=== PATIENT | male | born 1995 | race Caucasian/White ===

== ENCOUNTER 2021-04-17 16:37 | Emergency (ER) | payer OTHER, SELFPAY ==
[2021-04-17 16:38] VITALS: BP 123/73; PULSE 67; RESP 16; TEMP 36.6; O2SAT 98
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
[2021-04-17 16:42] VITALS: BMI 21.1
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
[2021-04-17 17:13] VITALS: BP 122/68; BP 123/74; PULSE 78; RESP 16; TEMP 36.6; O2SAT 98
--- NOTE | 2021-04-17 18:00 | PC.NURSE ---
report called to [place]
[2021-04-17 19:19] VITALS: BP 123/74; PULSE 78; RESP 16; TEMP 36.6; O2SAT 98
== END 2021-04-17 19:21 | disposition short-term general hospital (02) ==
PROVIDERS: Emergency Provider Emergency Medicine
DX: S21.132A Puncture wound without foreign body of left front wall of thorax without penetration into thoracic cavity, initial encounter (principal); X95.8XXA Assault by other firearm discharge, initial encounter; Y92.69 Other specified industrial and construction area as the place of occurrence of the external cause; Y99.0 Civilian activity done for income or pay
CPT/HCPCS: 71045; 74018; 96365; 96375; 96376; 99281; J2405